=== PATIENT | male | born 1930 | race Caucasian/White ===

== ENCOUNTER → 2017-05-18 | Outpatient (CLI) | payer MEDICARE ==
[~2017-05-18] MED LIST: ACET30TAB PO; ASPI81TA85 PO; BISO5TAB5 PO; CARB1TAB20 PO; CLOP75TA2 PO; FENO134C PO; FENO145T PO; FINA5TAB2 PO; FLOM5CAP PO; HYDR12.55 PO; LOSA50TA20 PO; META48.54 PO; MULT1TAB10 PO; OMEP40CA2 PO; PRAV10TA4 PO; VITA500T PO
--- NOTE | 2017-05-18 12:31 | REP ---
PA and lateral chest: There are no comparisons. The right hilus is borderline enlarged. This is of uncertain significance in the absence of comparison studies. There are surgical clips in the abdominal right upper quadrant. There is a 7 mm nodule projected over the dome of the right hemidiaphragm. The lung rincon otherwise clear. Cardiac size normal. The right hilus, mediastinum, and bony thorax are unremarkable. There are no acute cardiopulmonary findings. Impression: Borderline large right hilus. 7 mm nodule projected over the dome of the liver on the right. Consider chest CT for follow-up of these findings. There are no acute cardiopulmonary findings Signed by Gonzalo Lopes MD 05/18/2017 12:22 P
== END ==
LOC: M RAD 10:24
PROVIDERS: ATTEND Anesthesiology
DX: Z01.810 Encounter for preprocedural cardiovascular examination (principal); I10 Essential (primary) hypertension; R91.8 Other nonspecific abnormal finding of lung field

== ENCOUNTER 2017-05-29 09:14 | Inpatient (IN) | payer MEDICARE ==
[2017-05-29] VITALS (7 sets, daily range): BP systolic 126–167; BP diastolic 47–62
[~2017-05-29] VITALS: Ht 165.1 cm; Wt 85.1 kg
[~2017-05-29 09:14] MED LIST changes: -ACET30TAB PO; -CLOP75TA2 PO; -FENO134C PO
[2017-05-29] MEDS ORDERED: LR 1,000 ML IV ONE (09:30)
[2017-05-29] MEDS ORDERED: LR 1,000 ML IV SCH ×2 (09:30→15:15)
[2017-05-29] MEDS: HEPARIN SOD (PORCINE) 5000 UNITS/ML VIAL As Ordered ONE ×3 (10:51→13:40)
[2017-05-29] MEDS ORDERED: VASOPRESSIN INJ 20 UNITS/ML VIAL As Ordered ONE (10:51)
[2017-05-29] MEDS ORDERED: ceFAZolin 1GM INJ (J0690) As Ordered ONE ×2 (11:47→12:35)
[2017-05-29] MEDS ORDERED: METHYLENE BLUE 0.5% (5MG/ML) 10 ML AMP (PROVAYBLUE)(Q9968 PER 1MG) As Ordered ONE (11:47)
[2017-05-29] MEDS ORDERED: PROPOFOL 200 MG/20 ML VIAL As Ordered ONE ×3 (12:33→14:17)
[2017-05-29] MEDS ORDERED: dexameTHASONE 4 MG/ML 1ML VIAL (J1100) As Ordered ONE (12:34)
[2017-05-29] MEDS ORDERED: ROCURONIUM BROMIDE 50 MG/5 ML VIAL/SYRINGE As Ordered ONE ×3 (12:34→13:18)
[2017-05-29 12:36] LABS: ABG HCO3 23.4 MEQ/L (22.0-26.0); ABG PARTIAL PRESSURE CO2 37.9 mmHg (35.0-45.0); ABG PARTIAL PRESSURE O2 385.8 mmHg (75.0-100.0); ABG STANDARD HCO3 23.7 MEQ/L (22.0-26.0); ABG TOTAL CO2 24.5 MEQ/L (23.0-31.0); ABG pH (ARTERIAL) 7.408 UNITS (7.350-7.450)
[2017-05-29] MEDS ORDERED: PROTAMINE SULF INJ 50 MG/5 ML VIAL (J2720) As Ordered ONE (12:50)
[2017-05-29] MEDS ORDERED: ETOMIDATE INJ 20MG/10ML VIAL As Ordered ONE (13:01)
[2017-05-29] MEDS ORDERED: GLYCOPYRROLATE INJ 0.2 MG/ML 2 ML VIAL As Ordered ONE ×2 (13:01→14:09)
[2017-05-29] MEDS ORDERED: PHENYLephrine HCL 500 MCG/5 ML (100MCG/ML) SYRINGE (J2370) As Ordered ONE (13:15)
[2017-05-29] MEDS ORDERED: ePHEDrine SULFATE 25 MG/5 ML(5MG/ML) SYRINGE As Ordered ONE (13:15)
[2017-05-29] MEDS ORDERED: fentaNYL 100 MCG/2 ML INJECTION (J3010) As Ordered ONE ×2 (13:18→14:52)
[2017-05-29] MEDS ORDERED: MIDAZOLAM INJ 2 MG/2 ML VIAL (J2250) As Ordered ONE (13:18)
[2017-05-29] MEDS ORDERED: LIDOCAINE 2% INJ 100 MG/5 ML SDV (FOR ANES.) As Ordered ONE (13:18)
[2017-05-29] MEDS ORDERED: THROMBIN SOLN 20,000 UNITS KIT As Ordered ONE (14:05)
[2017-05-29] MEDS ORDERED: NEOSTIGMINE 1MG/ML 5 ML SYRINGE (J2710) As Ordered ONE (14:09)
[2017-05-29] MEDS ORDERED: ONDANSETRON 4MG/2ML VIAL (J2405) As Ordered ONE (14:14)
[2017-05-29] MEDS ORDERED: HYDROmorphone HCL 2 MG/ML 1ML VIAL (J1170) As Ordered ONE (14:42)
[2017-05-29] MEDS ORDERED: ACETAMINOPH W/CODEINE #3 TAB UD PO PRN (15:15)
[2017-05-29] MEDS ORDERED: ONDANSETRON 4MG/2ML VIAL (J2405) IV PRN ×2 (15:15)
[2017-05-29] MEDS ORDERED: MORPHINE 2 MG/ML 1ML SYRINGE IV PRN (15:15)
[2017-05-29] MEDS ORDERED: fentaNYL 100 MCG/2 ML INJECTION (J3010) IV PRN (15:15)
[2017-05-29] MEDS: TAMSULOSIN 0.4 MG CAP PO SCH (20:04)
[2017-05-29] MEDS: carBAMazepine 200 MG TAB PO SCH (20:04)
[2017-05-29] MEDS: DOCUSATE SODIUM 100 MG CAP PO SCH (20:04)
[2017-05-29] MEDS: SENOKOT S TAB PO SCH (20:05)
[2017-05-29] MEDS: PRAVASTATIN 20 MG TAB PO SCH (20:05)
[2017-05-30] MEDS: ACETAMINOPHEN TAB 650MG DOSE (2X325MG) PO PRN ×2 (00:43→13:56)
[2017-05-30 01:05] VITALS: BP 134/49
[2017-05-30 04:00] VITALS: BP 107/57
[2017-05-30 07:00] LABS: BASO % 0.2 % (0.0-1.0); EOS % 0.2 % (0.0-3.0); LARGE UNSTAINED CELL # 0.1 K/mm3 (0.0-0.4); LARGE UNSTAINED CELL % 1.4 % (0.0-4.0); LYMPH # 0.8 K/mm3 (1.5-4.5); LYMPH % 8.7 % (24.0-44.0); MEAN CORPUSCULAR HGB CONC 34.1 g/dl (32.0-36.5); MEAN CORPUSCULAR VOLUME 93.8 fl (80.0-96.0); MONO # 0.6 K/mm3 (0.0-0.8); MONO % 7.5 % (0.0-5.0); NEUTROPHILS # 6.7 K/mm3 (1.8-7.7); PLATELET COUNT, AUTOMATED 188 k/mm3 (150-450); RED CELL DISTRIBUTION WIDTH 12.6 % (11.5-14.5); WHITE BLOOD COUNT 8.2 K/mm3 (4.0-10.0)
[2017-05-30 07:34] LABS: ANION GAP 10 MEQ/L (8-16); BLOOD UREA NITROGEN 22 MG/DL (7-18); CALCIUM LEVEL 8.3 MG/DL (8.8-10.2); CARBON DIOXIDE LEVEL 24 MEQ/L (21-32); CHLORIDE LEVEL 106 MEQ/L (98-107); CREATININE FOR GFR 0.93 MG/DL (0.70-1.30); GLOMERULAR FILTRATION RATE > 60.0 (>35); GLUCOSE, FASTING 122 MG/DL (83-110); POTASSIUM SERUM 3.7 MEQ/L (3.5-5.1); SODIUM LEVEL 140 MEQ/L (136-145)
[2017-05-30 10:00] VITALS: BP 133/60
[2017-05-30] MEDS: ASCORBIC ACID 500 MG TAB PO SCH (10:07)
[2017-05-30] MEDS: BISOPROLOL FUMARATE 5 MG TAB PO SCH (10:07)
[2017-05-30] MEDS: FENOFIBRATE 145 MG TAB (TRICOR) PO SCH (10:07)
[2017-05-30] MEDS: FINASTERIDE 5 MG TAB PO SCH (10:08)
[2017-05-30] MEDS: carBAMazepine 200 MG TAB PO SCH ×2 (10:08→20:52)
[2017-05-30] MEDS: ASPIRIN 81 MG ENTERIC TAB PO SCH (10:08)
[2017-05-30] MEDS: LOSARTAN 50 MG TAB PO SCH (10:08)
[2017-05-30] MEDS: MULTIVITAMINS/MINERALS THERAP 1 TAB PO SCH (10:09)
[2017-05-30] MEDS: OMEPRAZOLE 20 MG CAP PO SCH (10:09)
[2017-05-30] MEDS: DOCUSATE SODIUM 100 MG CAP PO SCH ×2 (10:09→20:52)
[2017-05-30] MEDS: hydroCHLOROthiazide 12.5 MG CAPSULE PO SCH (10:09)
[2017-05-30] MEDS: SENOKOT S TAB PO SCH ×2 (10:09→20:52)
[2017-05-30 14:00] VITALS: BP 140/65
[2017-05-30] MEDS: TAMSULOSIN 0.4 MG CAP PO SCH (20:52)
[2017-05-30] MEDS: PRAVASTATIN 20 MG TAB PO SCH (20:52)
[2017-05-30 22:00] VITALS: BP 146/67
--- NOTE | 2017-05-30 22:29 | IPNPDOC ---
Date Seen The patient was seen on 05/30/17. Progress Note SUBJECTIVE: Patient is without complaints. Patient required insertion of a Cates overnight due to urinary retention. OBJECTIVE PHYSICAL EXAMINATION: VITAL SIGNS: Please see below. GENERAL: Lying in bed comfortably HEENT: Normal CARDIOVASCULAR: Regular rate and rhythm. RESPIRATORY: Clear to auscultation bilaterally. ABDOMINAL: Soft nontender nondistended EXTREMITIES: 2+ palpable dorsalis pedis pulses bilaterally inguinal incisions clean with dressings in place. NEUROLOGICAL: Awake alert oriented x3 PSYCHOLOGICAL: Normal LABORATORY DATA: Please see below. MICROBIOLOGY: Please see below. DVT prophylaxis ordered?: Patient is low-risk and ambulatory ASSESSMENT AND PLAN: This is a 86-year-old male status post endovascular abdominal aortic aneurysm repair postop day 1. PROBLEMS: 1. urinary retention: Cates was inserted last evening. Cates will be removed today. 2. abdominal aortic aneurysm: Stable status post endovascular abdominal aortic aneurysm repair. DISPOSITION: Patient will be discharged 05/31/2017. VS, I&O, 24H, Fishbone Vital Signs/I&O Vital Signs Date Time Temp Pulse Resp B/P (MAP) Pulse Ox O2 Delivery O2 Flow Rate FiO2 05/30/17 15:40 98.5 05/30/17 14:00 73 18 140/65 (90) 95 Room Air 05/29/17 15:20 2 I&O- Last 24 Hours up to 6 AM 05/30/17 06:00 Intake Total 1970 ml Output Total 1000 ml Balance 970 ml Laboratory Data 24H LABS Laboratory Tests 2 05/30/17 06:43: White Blood Count 8.2, Red Blood Count 3.63L, Hemoglobin 11.6L, Hematocrit 34.1L , Mean Corpuscular Volume 93.8, Mean Corpuscular Hemoglobin 32.0, Mean Corpuscular Hemoglobin Concent 34.1, Red Cell Distribution Width 12.6, Platelet Count 188, Neutrophils (%) (Auto) 82.0H, Lymphocytes (%) (Auto) 8.7L, Monocytes (%) (Auto) 7.5H, Eosinophils (%) (Auto) 0.2, Basophils (%) (Auto) 0.2, Neutrophils # (Auto) 6.7, Lymphocytes # (Auto) 0.8L, Monocytes # (Auto) 0.6, Eosinophils # (Auto) 0.0, Basophils # (Auto) 0.0, Large Unclassified Cells % 1.4 , Large Unclassified Cells # 0.1, Anion Gap 10, Glomerular Filtration Rate > 60.0, Blood Urea Nitrogen 22H, Creatinine 0.93, Sodium Level 140, Potassium Level 3.7, Chloride Level 106, Carbon Dioxide Level 24, Calcium Level 8.3L CBC/BMP Laboratory Tests 05/30/17 06:43 Red Blood Count 3.63 L, Mean Corpuscular Volume 93.8, Mean Corpuscular Hemoglobin 32.0, Mean Corpuscular Hemoglobin Concent 34.1, Red Cell Distribution Width 12.6, Neutrophils (%) (Auto) 82.0 H, Lymphocytes (%) (Auto) 8.7 L, Monocytes (%) (Auto) 7.5 H, Eosinophils (%) (Auto) 0.2, Basophils (%) ( Auto) 0.2, Neutrophils # (Auto) 6.7, Lymphocytes # (Auto) 0.8 L, Monocytes # ( Auto) 0.6, Eosinophils # (Auto) 0.0, Basophils # (Auto) 0.0, Calcium Level 8.3 L Cristhian Greer MD May 30, 2017 22:29
[2017-05-31 06:00] VITALS: BP 135/64
[2017-05-31] MEDS: FENOFIBRATE 145 MG TAB (TRICOR) PO SCH (09:18)
[2017-05-31] MEDS: OMEPRAZOLE 20 MG CAP PO SCH (09:18)
[2017-05-31] MEDS: MULTIVITAMINS/MINERALS THERAP 1 TAB PO SCH (09:19)
[2017-05-31] MEDS: FINASTERIDE 5 MG TAB PO SCH (09:19)
[2017-05-31] MEDS: SENOKOT S TAB PO SCH (09:19)
[2017-05-31] MEDS: carBAMazepine 200 MG TAB PO SCH (09:19)
[2017-05-31] MEDS: DOCUSATE SODIUM 100 MG CAP PO SCH (09:19)
[2017-05-31] MEDS: ASPIRIN 81 MG ENTERIC TAB PO SCH (09:19)
[2017-05-31] MEDS: ASCORBIC ACID 500 MG TAB PO SCH (09:19)
[2017-05-31] MEDS: hydroCHLOROthiazide 12.5 MG CAPSULE PO SCH (09:20)
[2017-05-31] MEDS: LOSARTAN 50 MG TAB PO SCH (09:20)
[2017-05-31 09:21] VITALS: BP 110/51
[2017-05-31] MEDS: BISOPROLOL FUMARATE 5 MG TAB PO SCH (09:21)
[2017-05-31 11:40] VITALS: BP 142/68
[2017-05-31] MEDS ORDERED: ACET30TAB PO (11:57)
--- NOTE | 2017-05-31 22:59 | DS.PDOC ---
Discharge Summary General Date of Admission May 30, 2017 at 16:54 Date of Discharge 05/31/2017 Attending Physician: Cristhian Greer MD Discharge Summary PROCEDURES PERFORMED DURING STAY: Endovascular abdominal aortic aneurysm repair. ADMITTING DIAGNOSES: 1. Abdominal aortic aneurysm DISCHARGE DIAGNOSES: 1. Abdominal aortic aneurysm. COMPLICATIONS/CHIEF COMPLAINT: Abdominal Aortic Aneurysm. HISTORY OF PRESENT ILLNESS: Patient is an 86-year-old male with an abdominal aortic aneurysm that measures 5.3 cm and requires repair. HOSPITAL COURSE: Patient underwent abdominal aortic repair with endovascular repair and did well postoperatively. DISCHARGE MEDICATIONS: Please see below. ALLERGIES: Please see below. PHYSICAL EXAMINATION ON DISCHARGE: VITAL SIGNS: Please see below. GENERAL: Lying in bed comfortably HEENT: Normal NECK: Supple with no carotid bruits CARDIOVASCULAR EXAMINATION: Regular rate and rhythm RESPIRATORY EXAMINATION: Clear to auscultation bilaterally ABDOMINAL EXAMINATION: Soft nontender nondistended with no palpable pulsatile mass. EXTREMITIES: Well-perfused with palpable Danica pedis pulses. SKIN: Normal NEUROLOGICAL EXAMINATION: Awake alert oriented x3 with no focal deficits. PSYCHIATRIC EXAMINATION: Normal LABORATORY DATA: Please see below. PROGNOSIS: Excellent ACTIVITY: As tolerated. DIET: Resume previous diet. DISCHARGE PLAN: Patient being discharged to home. DISPOSITION: 01 Home, Self-Care. DISCHARGE INSTRUCTIONS: 1. patient will followup in the office in 7-10 days.. DISCHARGE CONDITION: Stable. TIME SPENT ON DISCHARGE: Greater than 45 minutes. Vital Signs/I&Os Vital Signs Date Time Temp Pulse Resp B/P (MAP) Pulse Ox O2 Delivery O2 Flow Rate FiO2 05/31/17 11:40 98.9 80 18 142/68 (92) 95 Room Air 05/29/17 15:20 2 I&O- Last 24 Hours up to 6 AM 05/31/17 05:59 Intake Total 400 ml Output Total 1210 ml Balance -810 ml Discharge Medications Scheduled Ascorbic Acid (Vitamin C) 500 Mg Tab, 500 MG PO DAILY, (Reported) Aspirin (Aspir-81) 81 Mg Tab, 81 MG PO DAILY, (Reported) Bisoprolol Fumarate (Bisoprolol Fumarate) 5 Mg Tab, 5 MG PO DAILY, (Reported) Carbamazepine (Carbamazepine) 200 Mg Tab, 200 MG PO BID, (Reported) Fenofibrate (Fenofibrate) 145 Mg Tab, 134 MG PO DAILY, (Reported) Finasteride (Finasteride) 5 Mg Tab, 5 MG PO DAILY, (Reported) Hydrochlorothiazide (Hydrochlorothiazide) 12.5 Mg Tab, 12.5 MG PO DAILY, ( Reported) Losartan Potassium (Losartan Potassium) 50 Mg Tab, 50 MG PO DAILY, (Reported) Multivitamins (Multivitamin Adults) 1 Tab Tab, 1 TAB PO DAILY, (Reported) Omeprazole (Omeprazole) 40 Mg Cap, 40 MG PO DAILY, (Reported) Pravastatin Sod (Pravastatin Sodium) 10 Mg Tab, 80 MG PO QHS, (Reported) Psyllium (Metamucil) 48.57 % Pow, 2 TSP PO QHS, (Reported) Tamsulosin Hydrochloride (Flomax) 0.4 Mg Cap, 0.4 MG PO QHS, (Reported) Scheduled PRN Acetaminophen/Codeine (Tylenol/Codeine #3) Tab, 1 EA PO Q4HP PRN for MODERATE PAIN (PS 5-7) Allergies Coded Allergies: No Known Allergies (Unverified , 05/29/17) Cristhian Greer MD May 31, 2017 22:59
--- NOTE | 2017-06-06 13:01 | RO ---
DATE OF PROCEDURE: 05/29/2017 PREOPERATIVE DIAGNOSIS: 5.3 cm abdominal aortic aneurysm. POSTOPERATIVE DIAGNOSIS: 5.3 cm abdominal aortic aneurysm. PROCEDURE: Endovascular abdominal aortic aneurysm repair with a 28 x 1 x 103 bifurcated Endograft left iliac limb extension with a 16 x 16 x 124 Endurance iliac limb. Right iliac limb extension with a 16 x 16 x 93 Endurance iliac limb. ATTENDING SURGEON: Dr. Lacie Greer RUNWAY MODEL: None. ANESTHESIA: General endotracheal anesthesia. ESTIMATED BLOOD LOSS: 100 mL. INTRAVENOUS (IV) FLUID: 1600. HEPARIN: 10,000 units. URINE OUTPUT: 220 mL via Cates. FLUOROSCOPIC TIME: 11 minutes 34 seconds. CONTRAST: 47 mL. COMPLICATIONS: None. DRAINS: None. SPECIMENS: None. IMPLANTS: Bifurcated Endograft with two iliac limbs. INDICATIONS: The patient is an 86-year-old male with a 5.3 cm abdominal aortic aneurysm who is evaluated and felt to be a good candidate for an endovascular repair. Patient agrees to undergo an endovascular repair. DESCRIPTION OF PROCEDURE: The patient was taken to the operating room, placed supine on the operating room table, and then prepped and draped in a standard surgical fashion. The bilateral femoral arteries were exposed through oblique incisions, and then these were dissected free sharply and encircled with vessel loops. Entry needles and wires were placed, followed by 11-Gabonese sheath. The bifurcated graft was then brought through the right femoral approach and deployed below the level of the renal arteries with serial aortograms performed confirming infrarenal positioning, which was noted. The contra limb was then cannulated and extended using a 16 x 16 x 124 Endurance iliac limb. The right iliac limb was extended with a 16 x 16 x 93 Endurance iliac limb. Both the graft and both limbs were then angioplastied with a reliant, compliant balloon and a completion aortogram showed the renal arteries to be widely patent with good filling of the graft and no Type I endoleak. The femoral arteries were then closed using #6-0 Prolene suture in a running continuous fashion. The deeper layers were closed using #2-0 Vicryl and the skin was closed using #3-0 Monocryl in a running subcuticular fashion. Steri-Strip and dressings were applied. The patient tolerated the procedure well. All instrument, sponge and needle counts were correct at the end of the case. There were no complications. Dr. Greer was present for and directed the entire case. Patient was transferred to the recovery room awake, alert, extubated, in stable condition. RADIOLOGIC SUPERVISION INTERPRETATION: The initial aortogram showed the aorta to be widely patent. The renal arteries were patent and there was an aneurysm in the infrarenal aorta. The grafts was deployed under serial aortograms and the iliac limbs extended with a final aortogram showing the renal arteries to be widely patent with good filling of the graft in both limbs with good filling of the internal and external iliac arteries bilaterally.
[2017-07-24] MEDS ORDERED: CLOP75TA2 PO (10:56)
[2017-07-24] MEDS ORDERED: FENO134C PO (10:56)
== END 2017-05-31 12:51 | disposition home or self-care (01) | DRG 269 ==
LOC: INTOOBSV 09:14 → M OR 09:14 → M MSPAV 16:02 → OBSVTOIN 05-30 16:54
PROVIDERS: ADMIT Surgery Vascular Surgery; ATTEND Surgery Vascular Surgery
PROC: 04V03DZ Restriction of Abdominal Aorta with Intraluminal Device, Percutaneous Approach (ICD-10-PCS; principal; 2017-05-29 12:00)
DX: I71.4 Abdominal aortic aneurysm, without rupture (principal); R33.9 Retention of urine, unspecified; I10 Essential (primary) hypertension; K21.9 Gastro-esophageal reflux disease without esophagitis; E78.00 Pure hypercholesterolemia, unspecified; M19.90 Unspecified osteoarthritis, unspecified site; Z79.899 Other long term (current) drug therapy; Z87.891 Personal history of nicotine dependence

== ENCOUNTER → 2017-06-15 | Outpatient (CLI) | payer MEDICARE ==
[~2017-06-15] MED LIST changes: +ACET30TAB PO; +CLOP75TA2 PO; +FENO134C PO; +ISOVUE-370 76% 100ML VIAL (Q9967) As Ordered ONE
--- NOTE | 2017-06-15 09:43 | REP ---
CT ANGIOGRAM BRAIN: 06/15/2017. CLINICAL HISTORY: Carotid artery stenosis. TECHNIQUE: After bolus of 100 ml Isovue 370, scanning through the brain with 2 mm slices and with coronal and sagittal standard reconstructions as well as thick slab axial, coronal and sagittal MIP reformats provided. FINDINGS: No comparison study. No gross abnormality of the brain. There was atrophy with proportionate ventricular size, age appropriate. The basilar artery shows generally symmetric contributions from the right and left vertebral arteries. Tortuosity of the basilar artery. No basilar stenosis or aneurysm. No basilar tip aneurysm. Bilateral posterior cerebral arteries show origin from the basilar tip with some mild stenosis proximal left CATALOGUE MAKER. There is some calcification and ectasia of the right greater than left internal carotid arteries without stenosis. No internal carotid aneurysm at the skull base to the carotid siphons. The supraclinoid carotids are slightly ectatic on the right compared to left. A1 segment is larger. The middle cerebral arteries from the M1 branches through their peripheral branches are grossly symmetric and without stenosis. IMPRESSION: 1. Mild ectasia of the right internal carotid in the carotid siphon and extending to the supraclinoid carotid, but no aneurysm or vessel cutoff. No stenosis. 2. Dominant right A1 segment to the A2 segments with anterior communicating artery, most blood flow in the anterior cerebral arteries fed from that right A1 segment. 3. Middle cerebral artery symmetric and unremarkable. The posterior circulation unremarkable. Signed by Christopher Wong MD 06/15/2017 03:43 P
--- NOTE | 2017-06-15 09:45 | REP ---
CT ANGIOGRAM CAROTIDS: 06/15/2017 CLINICAL HISTORY: Bilateral carotid stenosis. TECHNIQUE: Axial thin-section images of the after bolus of 100 mL Isovue 370. FINDINGS: There are no prior studies. The vascular findings show three vessels arising from the arch with atherosclerotic plaque at the arch and in the proximal great vessels. The left common carotid shows its origin directly from the arch. There is atherosclerotic plaque at the bulb and proximal left ICA. There is 90 percent stenosis of that proximal left ICA with atherosclerotic plaque in the bulb into the ICA. Above this, the distal left ICA to the carotid siphon was without stenosis. The right innominate artery shows atherosclerotic plaque. The right common carotid artery from the innominate has its origin obscured by artifact from dense contrast shadowing. There is atherosclerotic plaque with irregular plaque and calcific plaque at the bulb and proximal internal carotid artery just less than 50% stenosis is noted. The right internal carotid above this area of stenosis is intact to the skull base and carotid siphon. Vertebral arteries show symmetric contribution to the basilar artery without basilar stenosis. Soft-tissue findings in the neck show the submandibular glands, parotid glands intact. Thyroid lobes show no nodular mass. Asymmetrically larger right than left jugular vein, which is an anatomic variant. There is no anterior or posterior cervical chain pathologic sized lymphadenopathy. The nasopharyngeal, oral pharyngeal, hypopharyngeal, laryngeal and subglottic tracheal airways are all intact. Marginal osteophytes anteriorly noted in the mid lower cervical spine. No compression fracture or spondylosis from C3-4 through C7-T1 noted. Both innominate and the left subclavian arteries show atherosclerotic plaque. I do not see significant stenosis. IMPRESSION: 1. The right internal carotid artery shows somewhat just less than 50% stenosis in its proximal course due to calcific and soft plaque while the left internal carotid artery shows approximately 90% stenosis of its proximal course due to calcific and soft plaque. 2. Symmetric contributions of the vertebral arteries to the basilar artery. No other stenosis or aneurysm. 3. Cervical spine shows diffuse cervical spondylosis. No soft tissue mass in the neck. Signed by Christopher Wong MD 06/15/2017 03:48 P
== END ==
LOC: M RAD 08:00
PROVIDERS: ATTEND Surgery Vascular Surgery
DX: I65.23 Occlusion and stenosis of bilateral carotid arteries (principal)
CPT/HCPCS: 70496; 70498; Q9967

== ENCOUNTER → 2017-07-02 | Outpatient (CLI) | payer MEDICARE ==
[~2017-07-02] MED LIST changes: -ISOVUE-370 76% 100ML VIAL (Q9967) As Ordered ONE
--- NOTE | 2017-07-02 10:03 | REP ---
Abdominal aortic sonography: History: Abdominal aortic aneurysm. Stent placed. Comparison radiographs are from May 29, 2017 documenting placement of aortobiiliac stent graft. Findings: The proximal abdominal aorta measures 2.3 x 2.5 cm in AP by transverse dimension. At the main renal artery origin level, these dimensions are 1.9 x 2.4 cm. There is a mid aortic infrarenal aneurysm measuring 4.5 cm AP by 5.9 cm transverse. This extends over an 8.5 cm craniocaudal length of the aorta. The distal abdominal aorta measures 1.7 x 1.7 cm in AP by transverse dimension. The common iliac arteries measure 1.3 and 1.5 cm on the right and left respectively in AP dimension. The stent graft is visible in the aneurysmal segment of the distal aorta. Impression: The stented aneurysm measures 4.5 x 5.9 cm in AP by transverse dimension respectively. Signed by Yossi Ren MD 07/02/2017 03:03 P
== END ==
LOC: M RAD 08:35
PROVIDERS: ATTEND Surgery Vascular Surgery
DX: I71.4 Abdominal aortic aneurysm, without rupture (principal)

== ENCOUNTER → 2017-08-31 | Outpatient (CLI) | payer MEDICARE ==
--- NOTE | 2017-08-31 13:25 | REP ---
Clinical: Known carotid stenosis status post left endarterectomy. Technique: Real time garcia scale and color Doppler evaluation using linear high frequency transducer. Findings: Right side demonstrates moderate mixed atheromatous plaquing through the common carotid arteries extending to the carotid bulb through the visualized internal and external carotid arteries with mild turbulence and spectral broadening in a region where calcified plaque material causes dense posterior shadowing and incomplete evaluation of the proximal internal carotid artery. Doppler interrogation demonstrates normal arterial wave pattern with moderate spectral broadening. Left carotid artery demonstrates evidence for prior endarterectomy with minimal intimal thickening of the common carotid artery as well as small amount of mixed plaque material through the carotid bulb and proximal internal carotid artery. There appears to be a focal area of narrowing at the visualized proximal internal carotid artery with associated turbulent flow and spectral broadening. Doppler interrogation demonstrates normal wave pattern with moderate spectral broadening. Incidental finding includes a hypoechoic area along the left side of the neck superior to the carotid bifurcation measuring 6.1 x 2.1 x 2.1 cm suggesting hematoma and clinical/physical correlation is recommended. Visualized portion of the left external carotid artery demonstrates what appears to be a small intraluminal flap of uncertain clinical significance without actual dissection identified. RIGHT (cm/s) LEFT (cm/s) ICA peak systolic velocity 138.2 100.5 ICA diastolic velocity 19.2 14.8 ECA peak systolic velocity 106.5 195.4 CCA peak systolic velocity 76.5 68.1 ICA/CCA ratio 1.81 1.48 Impression: 1. Dense calcified plaque in the proximal right internal carotid artery causes significant shadowing and based on set standards, narrowing is felt to be approaching the 69% level. 2. Narrowing through the left internal carotid artery falls within the less than 50% range and the patient is noted to be status post left endarterectomy. 3. Suspected hematoma in the left side of the neck above the level of bifurcation should be correlated with physical examination and history. 4. Small intimal flap within the visualized proximal external carotid artery of uncertain significance and without actual dissection identified. 5. Although the percentages of narrowing are noted above and based on set standards, visualized images raise the possibility of further stenosis and if clinically warranted, CTA or MRA should be considered for further investigation. Signed by Dez Santiago MD 08/31/2017 01:18 P
== END ==
LOC: M RAD 11:20
PROVIDERS: ATTEND Surgery Vascular Surgery
DX: I65.23 Occlusion and stenosis of bilateral carotid arteries (principal)

== ENCOUNTER → 2017-09-18 | Outpatient (CLI) | payer MEDICARE ==
--- NOTE | 2017-09-18 14:36 | REP ---
Left lower extremity duplex venous ultrasound: History: Left leg swelling. Chronic venous insufficiency. Question reflux of DVT. Findings: The deep veins are anechoic and fully compressible on two-dimensional scanning from the groin to the popliteal fossa left lower extremity. Color flow imaging is homogeneous. Spectral Doppler interrogation demonstrates intact respiratory variation in flow normal manual augmentation of flow. There is no evidence of DVT. There is a 5.8 x 1.9 x 1.1 cm Chirinos's cyst in the popliteal soft tissues of the left leg. Reflux examination: No significant reflux was observed in the deep system or in the greater saphenous or lesser saphenous vein of the left leg. The greater saphenous vein measures 6.8 mm in AP dimension at the saphenofemoral junction proximally. Greater saphenous vein diameter is 2.6 mm at midthigh and 2.4 mm at the knee. The lesser saphenous vein measures 3.1 mm in AP dimension. Impression: No evidence of DVT or significant deep or superficial venous reflux. There is a small collateral veins seen off the greater saphenous vein again without reflux. A Chirinos's cyst is seen. Signed by Yossi Ren MD 09/18/2017 02:27 P
== END ==
LOC: M RAD 11:07
PROVIDERS: ATTEND Surgery Vascular Surgery
DX: I87.2 Venous insufficiency (chronic) (peripheral) (principal); M79.605 Pain in left leg

== ENCOUNTER → 2018-02-14 | Outpatient (CLI) | payer MEDICARE | LOC: M RAD 08:05 | DX: I71.4 Abdominal aortic aneurysm, without rupture (principal); I65.23 Occlusion and stenosis of bilateral carotid arteries; F12.11 Cannabis abuse, in remission | CPT/HCPCS: 76775 ==

== ENCOUNTER → 2018-07-16 | Outpatient (REF) | payer MEDICARE | LOC: M LAB REF 16:14 | DX: C44.41 Basal cell carcinoma of skin of scalp and neck (principal); L57.8 Other skin changes due to chronic exposure to nonionizing radiation | CPT/HCPCS: 88305 ==

== ENCOUNTER → 2018-11-05 | Outpatient (CLI) | payer MEDICARE ==
[~2018-11-05] MED LIST changes: -FENO145T PO; +FENO145T13 PO; +FLOM0.4C39 PO; -FLOM5CAP PO; -LOSA50TA20 PO; +LOSA50TA88 PO
--- NOTE | 2018-11-05 09:39 | REP ---
CAROTID ULTRASOUND: Real-time ultrasound evaluation and duplex Doppler interrogation of the extracranial carotid vasculature is performed. There is mild to moderate plaquing and narrowing in both carotid bulbs extending into the internal and external carotid arteries. Luminal narrowing is less than 50%. There is no evidence of hemodynamically significant stenosis of either internal carotid artery. Normal flow velocities are seen. The vertebral arteries demonstrate normal direction of flow. RIGHT LEFT Peak systolic velocity ICA 94.8 cm/s 99.7 cm/s End diastolic velocity ICA 19.30 cm/s 22.2 cm/s Peak systolic velocity CCA 113.6 cm/s 98.6 cm/s Peak systolic velocity ECA 142.5 cm/s 121.2 cm/s ICA/CCA ratio 0.8 1.0 IMPRESSION: Bilateral luminal narrowing of the internal carotid arteries less than 50%. No evidence of hemodynamically significant stenosis. Electronically Signed by Gonzalo Prater MD 11/05/2018 09:30 A
--- NOTE | 2018-11-05 09:49 | REP ---
ULTRASOUND ABDOMINAL AORTA: Real-time sonographic evaluation of abdominal aorta performed and compared to prior study of 02/14/2017. Distal abdominal aortic aneurysm measures slightly smaller than on the prior study, 5.1 x 5.9 cm, previously 5.9 x 6.5 cm. Dilatation of the midabdominal aorta is similar to the prior study, 4.2 x 5.1 cm. More proximally abdominal aorta measures 2.5 cm in maximum AP dimension. The aneurysmal dilatation of the mid to distal abdominal aorta extends for a length of approximately 10.9 cm. Common iliac arteries are ectatic and unchanged, right 1.7 cm in AP dimension and left 1.6 cm. Aortobiiliac stent graft is again noted. IMPRESSION: Aneurysmal dilatation of the mid to distal abdominal aorta. The distal aortic dimensions are measuring slightly smaller than on the prior study as discussed in detail above. Otherwise no change. Electronically Signed by Gonzalo Prater MD 11/06/2018 01:30 P
== END ==
LOC: M RAD 07:53
PROVIDERS: ATTEND Surgery Vascular Surgery
DX: I71.4 Abdominal aortic aneurysm, without rupture (principal); I65.23 Occlusion and stenosis of bilateral carotid arteries

== ENCOUNTER → 2019-07-21 | Outpatient (CLI) | payer MEDICARE ==
[~2019-07-21] MED LIST changes: +ACET-716 PO; -ACET30TAB PO; -BISO5TAB5 PO; +BISO5TAB9 PO; -OMEP40CA2 PO; +OMEP40CA97 PO
--- NOTE | 2019-07-21 10:12 | REP ---
ULTRASOUND ABDOMINAL AORTA: Real-time sonographic evaluation of the abdominal aorta was performed and compared to prior study of 11/05/2018. There is fusiform aneurysmal dilatation of the mid to distal abdominal aorta which is essentially unchanged. Maximum AP diameter distally is 5.1 cm, transverse 5.2 cm. Proximally the abdominal aorta measures 2.8 x 2.7 cm in the mid aspect 4.3 x 4.1 cm in AP and transverse dimensions respectively. There is ectasia of the common iliac arteries, right measuring 2.1 x 2.1 cm and left 1.9 x 1.8 cm. IMPRESSION: No change in the aneurysmal dilatation of the distal abdominal aorta as discussed in detail above. Electronically Signed by Gonzalo Prater MD 07/22/2019 05:29 P
== END ==
LOC: M RAD 08:36
PROVIDERS: ATTEND Physician Assistant
DX: I71.4 Abdominal aortic aneurysm, without rupture (principal)

== ENCOUNTER → 2019-12-09 | Outpatient (CLI) | payer MEDICARE ==
[~2019-12-09] MED LIST changes: +BISO5TAB14 PO; -BISO5TAB9 PO; -FENO145T13 PO; +FENO145T7 PO
--- NOTE | 2019-12-09 11:23 | REP ---
DUPLEX CAROTID SONOGRAPHY: HISTORY: Occlusion and stenosis of bilateral carotid arteries. Comparison study November 05, 2018. FINDINGS: Antegrade flow was observed in both vertebral arteries. RIGHT CAROTID: The right common carotid artery shows mild diffuse intimal thickening. There is mild mixed plaquing in the bulb and proximal ICA on the right side on two-dimensional scanning. Color flow and spectral Doppler interrogation are unremarkable. Velocity Chart Right Carotid: PSV EDV Right CCA 99 cm/s Right ICA 116 cm/s 24 cm/s Right ECA 130 cm/s Right ICA/CCA ratio 1.2 IMPRESSION: Less than 50% category narrowing in the right ICA by Doppler velocity criteria. LEFT CAROTID: The left common carotid artery shows mild diffuse intimal thickening. There is mild mixed plaquing in the bulb and proximal ICA on the left side on two-dimensional scanning. Color flow and spectral Doppler interrogation are unremarkable in the ICA and CCA. Velocity Chart Left Carotid: PSV EDV Left CCA 103 cm/s Left ICA 110 cm/s 23 cm/s Left ECA 153 cm/s Left ICA/CCA ratio normal 1.1. IMPRESSION: Less than 50% category narrowing in the left ICA by Doppler velocity criteria. ICA Doppler velocities have not increased significantly since the prior study. Electronically Signed by Yossi Ren MD 12/09/2019 12:55 P
--- NOTE | 2019-12-09 11:48 | REP ---
ABDOMINAL AORTIC SONOGRAPHY: HISTORY: Abdominal aortic aneurysm without rupture. The patient is status post aortobi-iliac stent graft placement. Comparison abdominal aortic sonography July 21, 2019. FINDINGS: The abdominal aorta measures 1.9 x 2.2 cm in greatest AP x transverse dimension respectively at the level of the main renal arteries. Mid aorta the dimensions are 2.7 x 2.3 cm. There is a distal aortic aneurysm measuring 4.6 cm in greatest anteroposterior x 5.6 cm right to left dimension. This is essentially unchanged. Ectasia of the common iliac artery is noted bilaterally. The right measures 1.6 x 1.5 cm and the left measures 2.2 x 1.7 cm. The abdominal aortic aneurysm is 9.7 cm in length. IMPRESSION: 4.6 cm infrarenal abdominal aortic aneurysm essentially unchanged from most recent prior sonography. Electronically Signed by Yossi Ren MD 12/09/2019 12:55 P
== END ==
LOC: M RAD 08:46
PROVIDERS: ATTEND Physician Assistant
DX: I71.4 Abdominal aortic aneurysm, without rupture (principal); I65.23 Occlusion and stenosis of bilateral carotid arteries